=== PATIENT | female | born 1995 | race Caucasian/White ===

== ENCOUNTER 2021-02-05 01:21 | Emergency (ER) | payer SELFPAY ==
[~2021-02-05] VITALS: Ht 165.1 cm; Wt 54.5 kg
[2021-02-05 01:43] VITALS: BP 127/88
== END 2021-02-05 02:35 | disposition home or self-care (01) ==
LOC: ER 01:22
DX: Z00.8 Encounter for other general examination (principal); O46.91 Antepartum hemorrhage, unspecified, first trimester; R10.84 Generalized abdominal pain; R05 Cough; F17.210 Nicotine dependence, cigarettes, uncomplicated; F11.90 Opioid use, unspecified, uncomplicated; Z3A.00 Weeks of gestation of pregnancy not specified
CPT/HCPCS: 99283